=== PATIENT | male | born 1995 | race African-American/Black ===

== ENCOUNTER 2024-07-13 15:10 | Outpatient (AMB) | payer OTHER, SELFPAY ==
--- NOTE | 2024-07-13 15:31 | A.OFFPC_ITS ---
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 Required: No Allergies No Known Allergies Allergy (Verified 07/13/24 15:32) Tobacco use date assessed: 07/13/24 Dental Screening Dental Screen Date: 07/13/24 Did you have a dental visit in the last 12 months?: No Did you have a dental problem in the last 6 months where you did not have access to dental care?: No Was dental information given to patient?: No HPI HPI Comments History of Present Illness Details This is a 29-year-old male with a past medical history of asthma, obesity, depression with anxiety, elevated blood pressure and seasonal allergies presenting to [facility]. The patient signed a release for transfer records, but they have not been received yet. Patient was diagnosed with asthma in childhood. In the past required Dulera. He has been off of it for years. Requests refill of albuterol which he uses for vigorous exercise and sometimes seasonally. He does not need it often. No ER visits or hospitalizations in the last several years for asthma or courses of systemic steroids. 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 Since that time he stopped having junk food and he is starting to work out again at the gym, and he lost 25 lb. No recent thyroid testing, and his mother has a history of a thyroid disorder (noncancerous). The patient's father has high cholesterol and prediabetes. The patient's mother has diabetes. He has not had routine blood work recently. No polyuria or polydipsia. Patient would like to continue to lose weight to avoid having to take medication for his blood pressure. He is interested in a GLP 1 medication. Patient denies non restorative sleep, fatigue, morning headaches. Patient sta lj he only snores infrequently. The DOT examiner did not request a sleep study. The patient discloses that he sees a therapist for anxiety and depression and some other issues which he says he would like to keep private at this time. Declines influenza vaccine. ROS: Constitutional: No unexplained weight loss, fever, chills, fatigue or night sweats. Respiratory: No shortness of breath, cough or sputum production. Cardiovascular: No chest pain, chest pressure or chest discomfort. No palpitations or pedal edema. Gastrointestinal: No anorexia, nausea, vomiting or diarrhea. No abdominal pain or blood in stool. Neurologic: No headache, dizziness, syncope, unilateral weakness, ataxia, numbness or tingling in the extremities. Endocrine: No cold or heat intolerance. No polyuria or polydipsia. Psychiatric: No SI/HI. Physical exam: Constitutional: Alert, in no distress. Head: Normocephalic. Neck: Supple, Full range of motion. No lymphadenopathy. No palpable thyroid mas ses. Respiratory: Clear to auscultation. Cardiovascular: S1 S2 regular. No murmurs. Neurologic: No focal neurological deficits. Psychiatric: Normal mood and affect [facility] Medical History (Updated 07/13/24 @ 16:51 by PHILIPP Alexis) Class 3 obesity Mild intermittent asthma in adult without complication Screening for cardiovascular condition Elevated blood pressure reading Hypertension Asthma Surgical History (Updated 07/13/24 @ 15:48 by Leo Ureña MA) No pertinent past surgical history Family History (Updated 07/13/24 @ 15:50 by Leo Ureña MA) Brother Mental health disorder Psychiatric disorder Father Hypertension High cholesterol Diabetes Mother Diabetes Maternal Grandmother Cancer Social History (Updated 07/13/24 @ 15:47 by Leo Ureña MA) Household Members: Family Both parents involved: No Caregiver staying overnight: No Housing: House Are you a primary body care manager to a significant other at home: No Do you presently have visiting nurse or other home services: No 75 years or older and lives alone: No Alcohol intake: current Alcohol intake frequency: a few times a month Patient Tobacco Use Status: Never used Tobacco e-Cigarette/Vaping Use: Never Used Second Hand Smoke Exposure: No Current occupational status: employed 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 1. Little interest or pleasure in doing things: not at all 2. Feeling down, depressed, or hopeless: not at all 3. Trouble falling or staying asleep, or sleeping too much: not at all 4. Feeling tired or having little energy: not at all 5. Poor appetite or overeating: not at all 6. Feeling bad about yourself - or that you are a failure or have let yourself or your family down: not at all 7. Trouble concentrating on things, such as reading the newspaper or watching television: not at all 8. Moving or speaking so slowly that other people could have noticed. Or the opposite - being so fidgety or restless that you have been moving around a lot more than usual: not at all 9. Thoughts that you would be better off or of hurting yourself in some way: not at all Total score: 0 63454 - PHQ-9 Billing: Yes Source: Developed by Drs. Wan Noble, Lizette Jacobsen, Veto Rogers and colleagues, with an educational ridge from [employer]. Thrive Questionnaire Date Thrive assessed: 07/13/24 I am a: Patient What is your living situation today?: I have a steady place to live Within the past 12 months, did the food you bought not last and you didn't have the money to get more?: Never true Within the past 12 months, did you worry whether your food would run out before you got money to buy more?: Never true Do you have trouble paying for medicines?: No Do you have trouble getting transportation to medical appointments?: No Do you have trouble paying your heating and electricity bill?: No Do you have trouble taking care of your child, family member or friend?: No Do you have trouble with day-to-day activities such as bathing, preparing meals, shopping, managing finances, etc.?: No Are you currently unemployed and looking for a job?: No Are you interested in more education?: No THRIVE Score: 0 AUDIT C Alcohol Use Questionnaire (AUDIT-C) 1. How often do you have a drink containing alcohol?: Monthly or less 2. How many drinks containing alcohol do you have on a typical day when you are drinking?: 1 or 2 3. How often do you have six or more drinks on one occasion?: Less than monthly Total Score: 2 VICTOR M-7 AMB Questionnaire VICTOR M-7 Date VICTOR M - 7 assessed: 07/13/24 Feeling nervous, anxious, or on edge: 1 = Several days Not being able to stop or control worryin = Not at all Worrying too much about different things: 1 = Several days Trouble relaxin = Not at all Being so restless that it is hard to sit still: 0 = Not at all Becoming easily annoyed or irritable: 0 = Not at all Feeling afraid as if something awful might happen: 0 = Not at all Total VICTOR M-7 score (0-4 normal; 5-9 mild; 10-14 moderate; 15-21 severe): 2 Source: Developed by Drs. Wan Noble, Lizette Jacobsen, Veto Rogers and colleagues, with an educational ridge from [employer]. VICTOR M-7 Assessment Billing VICTOR M-7 Assessment Tool: VICTOR M-7 Assessment 63363 Physical exam (Primary Care) Vital Signs: Last Vital Signs Temp 97.3 F 07/13/24 15:42 Pulse 78 07/13/24 15:42 Resp 14 07/13/24 15:42 BP 138/79 07/13/24 15:42 Pulse Ox 96 07/13/24 15:42 Oxygen Delivery Method Room Air 07/13/24 15:42 BMI result Body Mass Index 49.5 Tobacco/Smoking Status: Tobacco use Status Tobacco use date assessed 07/13/24 07/13/24 15:46 Patient Tobacco Use Status Never used Tobacco 07/13/24 15:47 e-Cigarette/Vaping Use Never Used 07/13/24 15:47 PHQ-9: PHQ-9 Score PHQ-9: Total score 0 07/13/24 15:56 Thrive Assessment: Date of Thrive Assessment Date Thrive assessed 07/13/24 07/13/24 15:35 Coding Level of Care Code New Pt Level 4 (63358) Complex EM visit Add On G2211 Diagnoses Elevated blood pressure reading R03.0 Mild intermittent asthma in adult without complication J45.20 Class 3 obesity E66.813 Additional Codes VICTOR M-7 Assessment Billing - VICTOR M-7 Assessment Tool: VICTOR M-7 Assessment 55557 ([id number]) PHQ-9 - 18916 - PHQ-9 Billing: Yes ([id number]) Assessment & Plan Assessment & Plan (1) Elevated blood pressure reading: Code(s): R03.0 - Elevated blood-pressure reading, without diagnosis of hypertension Category: Medical Plan: We discussed the risks of uncontrolled hypertension. Patient will try lifestyle modifications. He has already lost 25 lb. Recommended low-sodium diet and avoidance of caffeine. Continue to exercise at the gym. Re-evaluate at follow up appointment in September. (2) Mild intermittent asthma in adult without complication: Code(s): J45.20 - Mild intermittent asthma, uncomplicated Category: Medical Plan: Continue albuterol 2 puffs every 4 hours as needed for cough, wheezing and shortness of breath and 15 minutes prior to vigorous activity. (3) Class 3 obesity: Code(s): E66.813 - Obesity, class 3 Category: Medical Plan: Risks of obesity reviewed with the patient in detail. He is interested in a GLP 1 medication. We reviewed side effects and administration. He denies co ntraindications to it. Lifestyle modifications reviewed with the patient. Patient advised to have lab work done and check with his insurance to see if they cover this medication for weight loss. If they do he can contact the office so we can submit prior authorization. Plan Follow up in September for annual physical exam. Orders: Orders TSH reflex Free T4 Today E66.9 - Obesity, unspecified, R03.0 - Elevated blood- pressure reading, without diagnosis of hypertension, Z13.6 - Encounter for screening for cardiovascular disorders Lipid Panel Today E66.9 - Obesity, unspecified, E78.5 - Hyperlipidemia, unspecified, R03.0 - Elevated blood-pressure reading, without diagnosis of hypertension, Z13.6 - Encounter for screening for cardiovascular disorders Complete Blood Count no Diff Today E66.9 - Obesity, unspecified, R03.0 - Elevated blood-pressure reading, without diagnosis of hypertension, Z13.6 - Encounter for screening for cardiovascular disorders Comprehensive Met. Panel Today E66.9 - Obesity, unspecified, R03.0 - Elevated blood-pressure reading, without diagnosis of hypertension, Z13.6 - Encounter for screening for cardiovascular disorders Medications: New albuterol sulfate 90 mcg/actuation Administer 2 puffs 15 minutes prior to vigorous exercise 2 inhalations inhalation .every 4 hours 30 days PRN 8.5 grams 1RF shortness of breath or wheezing albuterol sulfate 90 mcg/actuation Administer 2 puffs 15 minutes prior to vigorous exercise 2 inhalations inhalation .every 4 hours 30 days PRN 8.5 grams 1RF shortness of breath or wheezing Patient Instructions: Please have fasting labs done. Please check with your insurance to see if they cover zepbound for weight loss. If they do, please contact the office, and I can send the prescription. Please check with DOT to confirm this medication is not prohibited.
[2024-07-13 15:42] VITALS: BP 138/79; PULSE 78; RESP 14; TEMP 36.3; O2SAT 96; BMI 49.5
== END 2024-07-13 16:20 | disposition home or self-care (01) ==
PROVIDERS: PCP Physician Assistant Medical; Visit Provider Physician Assistant Medical
DX: R03.0 Elevated blood-pressure reading, without diagnosis of hypertension (principal); J45.20 Mild intermittent asthma, uncomplicated; E66.813 Obesity, class 3; Z68.42 Body mass index [BMI] 45.0-49.9, adult

== ENCOUNTER → 2024-07-13 15:12 | Outpatient (BNVA) | payer OTHER, SELFPAY | PROVIDERS: PCP Physician Assistant Medical; Visit Provider Physician Assistant Medical | DX: R03.0 Elevated blood-pressure reading, without diagnosis of hypertension (principal); J45.20 Mild intermittent asthma, uncomplicated; E66.813 Obesity, class 3; Z68.42 Body mass index [BMI] 45.0-49.9, adult | CPT/HCPCS: 96127; 99202 ==

== ENCOUNTER 2024-10-06 10:41 | Outpatient (REF) | payer OTHER, SELFPAY ==
[2024-10-06 13:28] LABS: Hematocrit 44.6 % (42.0-52.0); Hemoglobin 14.7 g/dl (14.0-18.0); Mean Corpuscular Hemoglobin 29.9 pg (27.0-33.0); Mean Corpuscular Volume 90.8 fL (80.0-98.0); Mean Platelet Volume 10.4 fL (9.4-12.4); Platelet Count 314 X10*3/uL (160-400); Red Blood Count 4.91 X10*6/uL (4.60-5.80); Red Cell Distribution Width 12.8 % (11.0-16.0); White Blood Count 9.5 X10*3/uL (4.8-10.8)
[2024-10-06 14:01] LABS: Alanine Aminotransferase 45 U/L (0-40); Albumin Level 4.2 g/dL (3.5-5.0); Alkaline Phosphatase 57 U/L (39-117); Anion Gap 9 (12-20); Aspartate Amino Transferase 34 U/L (5-37); Bilirubin Total 0.5 mg/dL (0.0-1.0); Blood Urea Nitrogen 11 mg/dL (9-16); Calcium 9.1 mg/dL (8.4-10.2); Carbon Dioxide 25 mmol/L (22-29); Chloride 106 mmol/L (96-108); Cholesterol 157 mg/dL (<200); Estimated Glomerular Filt Rate > 60; Glucose Random 115 mg/dL (60-115); HDL Cholesterol 37 mg/dL (>40); LDL Cholesterol Calculated 102 mg/dL (<100); Potassium 3.8 mmol/L (3.3-5.1); Sodium 136 mmol/L (135-145); Triglycerides 93 mg/dL (<150)
[2024-10-06 14:25] LABS: TSH reflex Free T4 1.19 uIU/mL (0.32-4.0)
== END 2024-10-06 10:42 | disposition home or self-care (01) ==
LOC: HO.HMGCLDS 10:41
PROVIDERS: PCP Physician Assistant Medical; Visit Provider Physician Assistant Medical
DX: R03.0 Elevated blood-pressure reading, without diagnosis of hypertension (principal); Z13.6 Encounter for screening for cardiovascular disorders; E66.9 Obesity, unspecified; E78.5 Hyperlipidemia, unspecified
CPT/HCPCS: 36415; 80053; 80061; 84443; 85027

== ENCOUNTER 2024-10-12 16:08 | Outpatient (AMB) | payer OTHER, SELFPAY ==
--- NOTE | 2024-10-12 16:12 | MHC.PC.OV ---
Vital Signs 10/12/24 16:18 10/12/24 16:46 Height 6 ft 1 in Weight 379 lb 4 oz BMI 50.0 BP 118/78 Blood Pressure Location Rt brachial Position Sitting Pulse 102 H 96 Pulse Source Pulse Oximeter Temp 98.6 F Temp Source Temporal Artery Scan Pulse Oximetry (%) 97 Oxygen Delivery Method Room Air Intake Visit Reasons: annual physical Intake Note: Giacomo presents in the office today for his annual physical. Allergies grass pollen Allergy (Verified 10/12/24 16:16) Watery eyes house dust mite Allergy (Verified 10/12/24 16:16) Rash Seasonal Allergies Allergy (Verified 10/12/24 16:16) Runny Nose Tobacco use date assessed: 10/12/24 Dental Screening Dental Screen Date: 10/12/24 Did you have a dental visit in the last 12 months?: No Did you have a dental problem in the last 6 months where you did not have access to dental care?: No Was dental information given to patient?: Yes HPI HPI Comments History of Present Illness Details This is a 29-year-old male with a past medical history of asthma, obesity, depression with anxiety, elevated blood pressure and seasonal allergies presenting for a physical exam. Patient was diagnosed with asthma in childhood. In the past required Dulera. He has been off of it for years. Requires Albuterol as needed/before exercise. No ER visits or hospitalizations in the last several years for asthma or courses of systemic steroids. 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 He is working on losing weight. Since that time he stopped having junk food and he is starting to work out again at the gym. Not interested in weight loss referral or medication at this time. The patient disclosed at his initial visit that he sees a therapist for anxiety and depression and some other issues he did not wish to disclose. Declines influenza vaccine. He is unsure if he is utd with tdap. We have not received records. He would like them reviewed before he decides to get tdap updated. Discussed pneumonia vaccination due to asthma. We reviewed dyslipidemia and recommendations. LFT x 1 mildly elevated. Drinks a few beers most days. He will avoid alcohol and repeat labs in 4 weeks. Patient has IFG. Mother has Type II DM. ROS: Constitutional: No unexplained weight loss, fever, chills, fatigue or night sweats. Eyes: No vision changes, blurry vision, double vision, eye pain, eye redness, eye discharge. ENT: No hearing loss, sneezing, congestion, runny nose or sore throat. Respiratory: No shortness of breath, cough or sputum production. Cardiovascular: No chest pain, chest pressure or chest discomfort. No palpitations or pedal edema. Gastrointestinal: No anorexia, nausea, vomiting or diarrhea. No abdominal pain or blood in stool. Genitourinary: No dysuria, hematuria, urinary frequency. Neurologic: No headache, dizziness, syncope, unilateral weakness, ataxia, numbness or tingling in the extremities. Musculoskeletal: No muscle pain, back pain, joint pain or swelling. Hematologic/Lymphatics: No bleeding or bruising. No painful lymph nodes. Skin: No rash Endocrine: No cold or heat intolerance. No polyuria or polydipsia. Psychiatric:No SI/HI. Physical exam: Constitutional: Alert, in no distress. Head: Normocephalic. Eyes: Pupils are equal, round and reactive to light. Extraocular muscles intact. Ear, Nose and Throat: Canals clear. TMs normal. Normal nasal mucosa. No nasal discharge. No oral lesions. Neck: Supple, Full range of motion. No lymphadenopathy. No palpable thyroid masses. Respiratory: Clear to auscultation. Cardiovascular: S1 S2 regular. No murmurs. Gastrointestinal: Abdomen soft, non-tender, non-distended. Normal bowel sounds. No palpable masses. Genitourinary: Patient declined recommended exam. States home exams are normal. Neurologic: No focal neurological deficits. Symmetric patellar reflexes. Moves all extremities spontaneously. Sensation intact bilaterally. Skin: No rashes Musculoskeletal: No gross deformities. Normal range of motion. Extremities: Warm and well perfused. No clubbing, cyanosis or edema. Psychiatric: Normal mood and affect [facility] Medical History (Updated 10/12/24 @ 16:44 by PHILIPP Alexis) Routine physical examination IFG (impaired fasting glucose) Elevated LFTs Class 3 obesity Mild intermittent asthma in adult without complication Screening for cardiovascular condition Elevated blood pressure reading Hypertension Asthma Surgical History (Updated 07/13/24 @ 15:48 by Leo Ureña MA) No pertinent past surgical history Family History Brother Mental health disorder Psychiatric disorder Father Hypertension High cholesterol Diabetes Mother Diabetes Maternal Grandmother Cancer Social History (Updated 10/12/24 @ 16:17 by Sara Mccartney MA) Household Members: Family Both parents involved: No Caregiver staying overnight: No Housing: House Are you a primary healthcare facility administrator to a significant other at home: No Do you presently have visiting nurse or other home services: No 75 years or older and lives alone: No Alcohol intake: current Alcohol intake frequency: a few times a month Patient Tobacco Use Status: Never used Tobacco e-Cigarette/Vaping Use: Never Used Second Hand Smoke Exposure: No service: No Current occupational status: employed 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 1. Little interest or pleasure in doing things: not at all 2. Feeling down, depressed, or hopeless: not at all 3. Trouble falling or staying asleep, or sleeping too much: not at all 4. Feeling tired or having little energy: not at all 5. Poor appetite or overeating: not at all 6. Feeling bad about yourself - or that you are a failure or have let yourself or your family down: not at all 7. Trouble concentrating on things, such as reading the newspaper or watching television: not at all 8. Moving or speaking so slowly that other people could have noticed. Or the opposite - being so fidgety or restless that you have been moving around a lot more than usual: not at all 9. Thoughts that you would be better off or of hurting yourself in some way: not at all Total score: 0 Depression Screening Interpretation: Negative Depression Screening Done: Yes 85665 - PHQ-9 Billing: Yes Source: Developed by Drs. Wan Noble, Lizette Jacobsen, Veto Rogers and colleagues, with an educational ridge from [employer]. Thrive Questionnaire Date Thrive assessed: 10/12/24 I am a: Patient What is your living situation today?: I have a steady place to live Within the past 12 months, did the food you bought not last and you didn't have the money to get more?: Never true Within the past 12 months, did you worry whether your food would run out before you got money to buy more?: Never true Do you have trouble paying for medicines?: No Do you have trouble getting transportation to medical appointments?: No Do you have trouble paying your heating and electricity bill?: No Do you have trouble taking care of your child, family member or friend?: No Do you have trouble with day-to-day activities such as bathing, preparing meals, shopping, managing finances, etc.?: No Are you currently unemployed and looking for a job?: No Are you interested in more education?: No Please select the resources that you would like help with: None Currently or been in a relationship where the following occur: No concerns reported THRIVE Score: 0 AUDIT C Alcohol Use Questionnaire (AUDIT-C) 1. How often do you have a drink containing alcohol?: 2-4 times a month 2. How many drinks containing alcohol do you have on a typical day when you are drinking?: 1 or 2 3. How often do you have six or more drinks on one occasion?: Less than monthly Total Score: 3 Score Reviewed/Action Taken: No VICTOR M-7 AMB Questionnaire VICTOR M-7 Date VICTOR M - 7 assessed: 10/12/24 Feeling nervous, anxious, or on edge: 0 = Not at all Not being able to stop or control worryin = Not at all Worrying too much about different things: 0 = Not at all Trouble relaxin = Not at all Being so restless that it is hard to sit still: 0 = Not at all Becoming easily annoyed or irritable: 0 = Not at all Feeling afraid as if something awful might happen: 0 = Not at all Total VICTOR M-7 score (0-4 normal; 5-9 mild; 10-14 moderate; 15-21 severe): 0 Source: Developed by Drs. Wan Noble, Lizette Jacobsen, Veto Rogers and colleagues, with an educational ridge from [employer]. VICTOR M-7 Assessment Billing VICTOR M-7 Assessment Tool: VICTOR M-7 Assessment 22303 ACT Questionnaire In the past 4 weeks, how much of the time did your asthma keep you from getting as much done at work, school or at home?: A little of the time During the past 4 weeks, how often have you had shortness of breath?: 1-2 times a week During the past 4 weeks, how often did your asthma symptoms wake you up at night or earlier than usual in the morning?: Not at all During the past 4 weeks, how often have you had to use your rescue inhaler or nebulizer medication?: 1-2 times a week How would you rate your asthma control during the past 4 weeks?: Completely controlled ACT Interpretation: Negative Score: 20 Physical exam (Primary Care) Vital Signs: Last Vital Signs Temp 98.6 F 10/12/24 16:18 Pulse 96 10/12/24 16:46 BP 118/78 10/12/24 16:18 Pulse Ox 97 10/12/24 16:18 Oxygen Delivery Method Room Air 10/12/24 16:18 BMI result Body Mass Index 50.0 Tobacco/Smoking Status: Tobacco use Status Tobacco use date assessed 10/12/24 10/12/24 16:26 Patient Tobacco Use Status Never used Tobacco 10/12/24 16:17 e-Cigarette/Vaping Use Never Used 10/12/24 16:17 PHQ-9: PHQ-9 Score PHQ-9: Total score 0 10/12/24 16:32 Depression Screening Interpretation: Negative Thrive Assessment: Date of Thrive Assessment Date Thrive assessed 10/12/24 10/12/24 16:14 Currently or been in a relationship where the following occur: No concerns reported Coding Level of Care Code Est Pt Prev Care 18-39y(25489) Diagnoses Routine physical examination Z00.00 IFG (impaired fasting glucose) R73.01 Elevated LFTs R79.89 Additional Codes Asthma Control Questionnaire - ACT Interpretation: Negative ([id number]) VICTOR M-7 Assessment Billing - VICTOR M-7 Assessment Tool: VICTOR M-7 Assessment 61462 ([id number]) PHQ-9 - 43650 - PHQ-9 Billing: Yes ([id number]) Assessment & Plan Assessment & Plan (1) Routine physical examination: Code(s): Z00.00 - Encounter for general adult medical examination without abnormal findings Category: Medical Plan: Patient is seen today for a routine physical. As part of this visit we reviewed the following issues, which are considered and essential part of preventative health in this age group: - Testicular cancer screening, which includes self exam teaching - Blood pressure screening annually - Cholesterol screening - Nutritional and exercise counseling - Counseling of injury prevention including fire prevention, smoke alarms and seat belt usage - Screening for depression - Prevention of and/or testing for infectious diseases - declined. - Education about skin cancer - Recommendations about immunizations - Recommendation of an eye exam - Screening for substance abuse (2) IFG (impaired fasting glucose): Code(s): R73.01 - Impaired fasting glucose Category: Medical Plan: Check hemoglobin a1c. (3) Elevated LFTs: Code(s): R79.89 - Other specified abnormal findings of blood chemistry Category: Medical Plan: Repeat in 4 weeks. Decrease alcohol, processed foods, high cholesterol foods. Plan follow up in 5 weeks to review test results Orders: Orders Hemoglobin A1c Today E11.9 - Type 2 diabetes mellitus without complications, R73.01 - Impaired fasting glucose, R79.89 - Other specified abnormal findings of blood chemistry Alanine Aminotransferase Today R73.01 - Impaired fasting glucose, R79.89 - Other specified abnormal findings of blood chemistry Aspartate Amino Transferase Today R73.01 - Impaired fasting glucose, R79.89 - Other specified abnormal findings of blood chemistry
[2024-10-12 16:18] VITALS: BP 118/78; PULSE 102; TEMP 37; O2SAT 97; BMI 50.0
[2024-10-12 16:46] VITALS: PULSE 96
== END 2024-10-12 16:55 | disposition home or self-care (01) ==
LOC: HO.HMCFM 16:08
PROVIDERS: PCP Physician Assistant Medical; Visit Provider Physician Assistant Medical
DX: Z00.00 Encounter for general adult medical examination without abnormal findings (principal); R73.01 Impaired fasting glucose; R79.89 Other specified abnormal findings of blood chemistry

== ENCOUNTER → 2024-10-12 16:08 | Outpatient (BNVA) | payer OTHER, SELFPAY | PROVIDERS: PCP Physician Assistant Medical; Visit Provider Physician Assistant Medical | DX: Z00.00 Encounter for general adult medical examination without abnormal findings (principal); R73.01 Impaired fasting glucose; R79.89 Other specified abnormal findings of blood chemistry | CPT/HCPCS: 96127; 96160; 99395 ==

== ENCOUNTER 2024-10-19 11:51 | Outpatient (AMB) | payer OTHER, SELFPAY ==
--- NOTE | 2024-10-19 11:47 | MHC.PC.OV ---
Intake Visit Reasons: daily inhaler? Allergies grass pollen Allergy (Verified 10/19/24 11:49) Watery eyes house dust mite Allergy (Verified 10/19/24 11:49) Rash Seasonal Allergies Allergy (Verified 10/19/24 11:49) Runny Nose Tobacco use date assessed: 10/19/24 Dental Screening Dental Screen Date: 10/12/24 Did you have a dental visit in the last 12 months?: Yes Did you have a dental problem in the last 6 months where you did not have access to dental care?: No Was dental information given to patient?: Patient has dentist HPI HPI Comments History of Present Illness Details 29-year-old male with a past medical history of IFG, elevated LFTs, obesity, asthma presents to discuss asthma. Patient has been working out a lot lately trying to lose weight. He is at the gym 4 days per week. Exercise always triggers his asthma. He is experiencing coughing, wheezing and shortness of breath with exercise which is temporarily alleviated when he administers his albuterol inhaler, but he is taking it very frequently. Denies chest pain, palpitations, syncope. In the past he was on a daily maintenance inhaler when he played sports. He would like to go back on medication like this. Denies fevers or chills. ROS: Constitutional: Denies fevers or chills Respiratory: No sputum production. Cardiovascular: No chest pain, chest pressure or chest discomfort. No palpitations or pedal edema. [facility] Medical History (Updated 10/12/24 @ 16:44 by PHILIPP Alexis) Routine physical examination IFG (impaired fasting glucose) Elevated LFTs Class 3 obesity Mild intermittent asthma in adult without complication Screening for cardiovascular condition Elevated blood pressure reading Hypertension Asthma Surgical History (Updated 07/13/24 @ 15:48 by Leo Ureña MA) No pertinent past surgical history Family History Brother Mental health disorder Psychiatric disorder Father Hypertension High cholesterol Diabetes Mother Diabetes Maternal Grandmother Cancer Social History (Updated 10/12/24 @ 16:17 by Sara Mccartney MA) Household Members: Family Both parents involved: No Caregiver staying overnight: No Housing: House Are you a primary reservoir caretaker to a significant other at home: No Do you presently have visiting nurse or other home services: No 75 years or older and lives alone: No Alcohol intake: current Alcohol intake frequency: a few times a month Patient Tobacco Use Status: Never used Tobacco e-Cigarette/Vaping Use: Never Used Second Hand Smoke Exposure: No service: No Current occupational status: employed 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 Wan Noble, Lizette Jacobsen, Veto Rogers and colleagues, with an educational ridge from [employer]. Physical exam (Primary Care) Tobacco/Smoking Status: Tobacco use Status Tobacco use date assessed 10/19/24 10/19/24 11:50 Patient Tobacco Use Status Never used Tobacco 10/19/24 11:47 e-Cigarette/Vaping Use Never Used 10/19/24 11:47 Thrive Assessment: Date of Thrive Assessment Date Thrive assessed 10/12/24 10/19/24 11:47 Telehealth Telehealth Telehealth Platform: Telephone Location of provider rendering services: practice address Location of patient: address on file Patient Identification confirmed using: Name, : Yes Telehealth method: voice only Patient verbally consented to treatment: Yes Patient verbally consented to billing insurance company: Yes Patient informed of any privacy concerns related to visit: Yes Minutes spent on Phone/Video with Pt.: 5 Coding Level of Care Code Tele Est Pt Level 3 (95658) Complex EM visit Add On G2211 Diagnoses Mild intermittent asthma in adult without complication J45.20 Assessment & Plan Assessment & Plan (1) Mild intermittent asthma in adult without complication: Code(s): J45.20 - Mild intermittent asthma, uncomplicated Category: Medical Plan: Continue efforts at weight loss. Continue Albuterol 2 puffs 15 minutes before vigorous exercise and every 4 hours as needed for cough, wheezing or shortness of breath. Start Arnuity 1 puff daily. Reviewed side effects of inhaled corticosteroids. Reviewed calcium and vitamin-D intake. Gargle and rinse mouth after use. He has a follow up scheduled with pa 11/23/24. Medications: New fluticasone furoate 100 mcg/actuation (Arnuity Ellipta) 1 inh inhalation DAILY 30 ea 5RF Changed From albuterol sulfate 90 mcg/actuation Administer 2 puffs 15 minutes prior to vigorous exercise 2 inhalations inhalation .every 4 hours 30 days PRN 8.5 grams 1RF shortness of breath or wheezing To albuterol sulfate 90 mcg/actuation 2 inhalations inhalation .every 4 hours 30 days PRN 8.5 grams 2RF shortness of breath or wheezing
== END 2024-10-19 12:08 | disposition home or self-care (01) ==
LOC: HO.HMCFM 11:51
PROVIDERS: PCP Physician Assistant Medical; Visit Provider Physician Assistant Medical
DX: J45.20 Mild intermittent asthma, uncomplicated (principal)

== ENCOUNTER → 2024-10-19 11:51 | Outpatient (BNVA) | payer OTHER, SELFPAY | PROVIDERS: PCP Physician Assistant Medical; Visit Provider Physician Assistant Medical ==